=== PATIENT | male | born 1965 | race Caucasian/White ===

== ENCOUNTER 2019-11-23 06:01 | Outpatient (CLI) | payer BC, OTHER ==
[2019-11-23 18:10] LABS: #Basophils 0.1 thou/uL (0.0-0.2); #Eosinphils 0.2 thou/uL (0.0-0.7); #Lymphocytes 2.2 thou/uL (1.20-3.40); #Monocytes 0.8 thou/uL (0.11-0.59); #Neutrophils 4.8 thou/uL (1.40-6.50); %Basophils 1.3 % (0.0-1.0); %Eosinophils 2.7 % (0.0-10.0); %Lymphocytes 26.9 % (21.0-51.0); %Monocytes 10.1 % (0.0-10.0); %Neutrophils 59.1 % (42.0-75.0); Hemoglobin 15.2 g/dL (14.0-18.0); Mean Corpuscular HGB CONC 34.1 g/dL (32.0-36.0); Mean Corpuscular Hemoglobin 32.1 pg (27.0-31.0); Mean Corpuscular Volume 94.2 fL (78.0-98.0); Mean Platelet Volume 8.5 fL (7.4-10.4); Platelet Count 280 thou/uL (130-400); Red Blood Cell (RBC) Count 4.72 mill/uL (4.70-6.10); White Blood Cell (WBC) Count 8.1 thou/uL (4.8-10.8)
[2019-11-23 18:13] LABS: Prothrombin Time 12.9 sec (12.0-14.7)
[2019-11-23 18:14] LABS: PTT 29.7 sec (22.9-36.1)
[2019-11-23 18:20] LABS: Bacteria/HPF None Seen HPF (None Seen); Bilirubin Negative (Negative); Blood, Urine Negative (Negative); Clarity Clear (Clear); Glucose, Urine (Dipstick) Normal (Negative); Leukocyte Negative Leu/uL (Negative); Nitrite Negative (Negative); Protein, Urine (Dipstick) Negative (Neg-Trace); RBC/HPF 0-3 HPF (0-3); Squamous Epithelial None Seen HPF (0-3); Urobilinogen Normal mg/dL (Less than 2); WBC/HPF 0-3 HPF (0-3)
[2019-11-23 18:25] LABS: Anion Gap 12 mmol/L (10-20); BUN (Urea Nitrogen) 12 mg/dL (8.4-25.7); Calc. Creatinine Clearance 0 mL/min (70-130); Calcium 9.3 mg/dL (7.8-10.44); Carbon Dioxide 26 mmol/L (22-29); Chloride 101 mmol/L (98-107); Estimated GFR-MDRD Greater than 90; Glucose 108 mg/dL (70-105); Potassium 4.2 mmol/L (3.5-5.1); Sodium 135 mmol/L (136-145)
[2019-11-24 13:58] LABS: SARS-CoV-2 MS2 Positive; SARS-CoV-2 N Gene Negative; SARS-CoV-2 S Gene Negative; SARS-CoV-2 orf1ab Negative
== END 2019-11-23 06:02 | disposition home or self-care (01) ==
LOC: LABBT 06:01
PROVIDERS: ATTEND Urology
DX: Z01.818 Encounter for other preprocedural examination (principal); Z11.59 Encounter for screening for other viral diseases; N40.1 Benign prostatic hyperplasia with lower urinary tract symptoms; N41.1 Chronic prostatitis
CPT/HCPCS: 71046; 80048; 81001; 85025; 85610; 85730; 87086; 87635; U0003

== ENCOUNTER 2019-11-27 08:03 | Day surgery (SDC) | payer BC ==
[2019-11-27] MEDS ORDERED: Ondansetron PF 4 MG/2 ML Vial ONE ×2 (09:10→09:59)
[2019-11-27] MEDS ORDERED: Famotidine/PF 20 mg/2ml Vial ONE (09:11)
[2019-11-27] MEDS ORDERED: Fentanyl 100 MCG/2 ML VIAL ONE (09:11)
[2019-11-27] MEDS ORDERED: Midazolam HCl 2 mg/2 ml Vial ONE (09:11)
[2019-11-27] MEDS ORDERED: Levofloxacin 500 mg/D5W 100 ml Premix Bag ONE (09:37)
[2019-11-27] MEDS ORDERED: PROPOFOL 200 MG/20 ML VIAL ONE (09:59)
[2019-11-27] MEDS ORDERED: Lidocaine 1% PF 5 ML VIAL ONE (09:59)
[2019-11-27] MEDS ORDERED: Oxybutynin 5 MG TAB ONE (11:38)
[2019-11-27] MEDS ORDERED: Phenazopyridine HCl 97.5 MG TABLET ONE (11:39)
[2019-11-27] MEDS ORDERED: HYDROcodone/Acetaminophen 5/325 mg Tablet ONE ×2 (12:58→13:40)
--- NOTE | 2019-11-30 12:58 | OP ---
DATE OF PROCEDURE: 11/27/2019 SERVICE: Urology. PREOPERATIVE DIAGNOSIS: Benign prostatic hyperplasia with urinary obstruction. POSTOPERATIVE DIAGNOSIS: Benign prostatic hyperplasia with urinary obstruction. PROCEDURE PERFORMED: UroLift with 5 implants. INDICATIONS FOR PROCEDURE: Mr. Peoples is a 54-year-old white male, who initially presented to me with BPH and urinary complaints. He did not wish to be on medical therapy and instead elected to undergo the UroLift procedure. Workup was performed, which demonstrated suitability, and all risks and benefits have been discussed and he has agreed to proceed forward. DESCRIPTION OF PROCEDURE: After identification of armband and verification of consent, the patient was brought back to the operating room, where he underwent total intravenous anesthesia. He was then placed in the dorsal lithotomy position and prepped and draped in usual sterile fashion. After appropriate time-out, a lubricated 21-Emirati rigid cystoscope for the UroLift device was inserted with the visual obturator through the urethra into the prostate and then into the bladder. The prostate showed similar features to the outpatient cystoscopy. The visual obturator was switched out for the UroLift implantation device. The first UroLift implant was placed on the patient's left proximal prostate closer to the bladder neck. The UroLift was initially positioned at the bladder neck and then withdrawn approximately 2 cm. Compression was achieved to 20 degrees and the device dropped on the outside to create an anterior lift on the prostate. The safety was released and the blue trigger fired to deploy the Nitinol needle. This tension was set using the neri trigger and then the UroLift device advanced forward until the white line was visible within the keyhole. The urethral end piece was then deployed using the back release trigger. This resulted in nice movement and lateral compression of the prostate on the left proximal side. This was then repeated on the right side; however, the Nitinol tab had a pull-through and the implant ended up coming out and falling into the bladder. We left it in the bladder, but then brought in a new UroLift and repeated the implant again on the right proximal prostate, which then resulted in good coaptation of that side. This was then repeated at the distal prostate on the left and right side. After the 4 implants that were placed, these appeared to adequately open up the prostate with a good channel. I did not feel any additional implants were necessary, although a total of 5 were used, one did end up in the bladder. To remove this, a cystoscope was then inserted into the bladder and flexible grasper was used to grasp the UroLift implant. This was then withdrawn, but unfortunately, the implant was held in a slightly crooked manner despite my best attempts to keep it as parallel to the urethra as possible. The steel urethral end piece was pointed slightly downward so when it was removed, it resulted in mucosal tearing of approximately 50% of the bulbar and proximal pendulous urethra. When I went back in with the cystoscope, it did show what looked like a minor DVIU type incision at 6 o'clock on the urethra. It was not full-thickness, but did appear to split the inner lining of the urothelium, as such I elected that the patient should have a Mast catheter placed and keep it in for at least 1 week to allow for urethral healing. Given that this is a longitudinal incision, I do feel this will probably heal without stricturing, but I will notify the patient of the findings postoperatively. The cystoscope was then removed and an 18-Emirati Mast catheter was placed with ease into the patient's bladder. 10 mL sterile water was placed into the balloon. The patient had a catheter secured with a StatLock and then attached to gravity bag. He was then taken out of positioning, awakened, and taken to PACU for recovery in stable condition. A B and O suppository was placed in the patient's rectum prior to take him out of positioning. Complications were a mild urethral laceration secondary to the UroLift implant, which was removed. This will be corrected by leaving the indwelling Mast catheter until the urethra heals. ESTIMATED BLOOD LOSS: Minimal. SPECIMENS: None. IMPLANTS USED: Five. DISPOSITION: The patient will be discharged home with his Mast catheter. He will present in 1 week for a void trial. Job ID: [id number]
== END 2019-11-27 14:00 | disposition home or self-care (01) ==
LOC: SDC 08:03
PROVIDERS: ATTEND Urology
PROC: 0T7D8DZ Dilation of Urethra with Intraluminal Device, Via Natural or Artificial Opening Endoscopic (ICD-10-PCS; principal; 2019-11-27)
DX: N40.1 Benign prostatic hyperplasia with lower urinary tract symptoms (principal); N13.8 Other obstructive and reflux uropathy; N99.71 Accidental puncture and laceration of a genitourinary system organ or structure during a genitourinary system procedure; Z79.899 Other long term (current) drug therapy; Y83.8 Other surgical procedures as the cause of abnormal reaction of the patient, or of later complication, without mention of misadventure at the time of the procedure
CPT/HCPCS: C1889; J1956; J2001; J2250; J2405; J2704; J3010; S0028